=== PATIENT | male | born 1975 | race Caucasian/White ===

== ENCOUNTER 2016-12-25 20:03 | Emergency (ER) | payer BC ==
[~2016-12-25] VITALS: Ht 190.5 cm; Wt 165.9 kg
[~2016-12-25 20:03] MED LIST: MOTRIN800 MG PO; PROMETHAZINE HC25 M1 PO; VICODIN,LORT1 TABLET PO
[2016-12-25 21:42] LABS: HEMATOCRIT 40.9 % (38.0-50.0); MCH 31.6 PG (29.0-34.0); MEAN PLAT.VOLUME 10.3 uM^3 (9.0-12.4); PLATELET COUNT 228 K/uL (156-360); RBC DIS.WIDTH-CV 12.8 % (11.8-14.6); RBC DIS.WIDTH-SD 43.8 % (39-53); WHITE BLOOD COUNT 6.6 K/uL (4.1-10.2)
[2016-12-25 22:00] LABS: CHLORIDE 109 mEq/L (99-109); POTASSIUM 4.2 mEq/L (3.7-5.4); SODIUM 139 mEq/L (136-147)
[2016-12-25 22:02] LABS: GLUCOSE 138 mg/dL (70-99)
[2016-12-25 22:03] LABS: ANION GAP 8 MEQ/L (2-14)
[2016-12-25 22:04] LABS: TOTAL BILIRUBIN 0.4 mg/dL (0.0-1.0)
[2016-12-25 22:06] LABS: ALKALINE PHOSPHATASE 91 IU/L (3-129); GFR ESTIMATE (CALCULATED) > 59 mL/min/
[2016-12-25 22:07] LABS: UREA NITROGEN (BUN) 15 mg/dL (9-23)
[2016-12-25 22:09] LABS: LIPASE 35 U/L (1.0-51.0)
[2016-12-26] MEDS ORDERED: ZOFRAN ODT4 MG PO (01:48)
[2016-12-26 02:01] VITALS: BP 131/76
== END 2016-12-26 02:01 | disposition home or self-care (01) ==
LOC: EME 20:03
DX: R10.30 Lower abdominal pain, unspecified (principal); K42.9 Umbilical hernia without obstruction or gangrene; R05 Cough; R74.8 Abnormal levels of other serum enzymes; I10 Essential (primary) hypertension
CPT/HCPCS: 71020; 74177; 80053; 83690; 85027; 99281; 99284; J1885; J2405; J7030

== ENCOUNTER → 2017-01-07 | Outpatient (CLI) | payer BC ==
[~2017-01-07] MED LIST changes: +HYDROCHLOROTHIA25 MG PO; +ZOFRAN ODT4 MG PO
== END | disposition home or self-care (01) ==
LOC: CDC 15:43
DX: K43.9 Ventral hernia without obstruction or gangrene (principal); R94.31 Abnormal electrocardiogram [ECG] [EKG]
CPT/HCPCS: 93000

== ENCOUNTER 2017-01-13 05:17 | Day surgery (SDC) | payer BC ==
[~2017-01-13] VITALS: Ht 188 cm; Wt 163.5 kg
[2017-01-13 05:41] VITALS: BP 144/90
[2017-01-13] MEDS ORDERED: ZOHYDRO ER10 M1 PO (08:51)
[2017-01-13 10:55] VITALS: BP 144/83
[2017-01-13 11:46] VITALS: BP 123/79
[2017-01-13 13:00] VITALS: BP 127/79
[2017-01-13 14:38] VITALS: BP 132/70
== END 2017-01-13 14:50 | disposition home or self-care (01) ==
LOC: SDC 05:17
PROC: 0WUF4JZ Supplement Abdominal Wall with Synthetic Substitute, Percutaneous Endoscopic Approach (ICD-10-PCS; principal; 2017-01-13)
DX: K43.6 Other and unspecified ventral hernia with obstruction, without gangrene (principal); H57.9 Unspecified disorder of eye and adnexa; I10 Essential (primary) hypertension; Z82.49 Family history of ischemic heart disease and other diseases of the circulatory system; Z83.3 Family history of diabetes mellitus
CPT/HCPCS: 88302; C1781; J0131; J0690; J1100; J1170; J2250; J2405; J2710; J3010

== ENCOUNTER → 2017-09-15 | Outpatient (CLI) | payer BC ==
[~2017-09-15] MED LIST changes: +ULTRAM50 MG PO; +ZOHYDRO ER10 M1 PO
== END | disposition home or self-care (01) ==
LOC: CDC 11:39
DX: Z01.810 Encounter for preprocedural cardiovascular examination (principal); S92.352G Displaced fracture of fifth metatarsal bone, left foot, subsequent encounter for fracture with delayed healing; R94.31 Abnormal electrocardiogram [ECG] [EKG]
CPT/HCPCS: 93000

== ENCOUNTER 2017-10-07 13:01 | Day surgery (SDC) | payer BC ==
[~2017-10-07] VITALS: Ht 190.5 cm; Wt 161.9 kg
[~2017-10-07 13:01] MED LIST changes: +LISINOPRIL20 MG PO
[2017-10-07 13:22] VITALS: BP 132/82
[2017-10-07 19:45] VITALS: BP 127/70
[2017-10-07 20:30] VITALS: BP 131/71
== END 2017-10-07 20:50 | disposition home or self-care (01) ==
LOC: SDC 13:01
PROC: 0QSP04Z Reposition Left Metatarsal with Internal Fixation Device, Open Approach (ICD-10-PCS; principal; 2017-10-07)
DX: S92.352K Displaced fracture of fifth metatarsal bone, left foot, subsequent encounter for fracture with nonunion (principal); I10 Essential (primary) hypertension; E66.01 Morbid (severe) obesity due to excess calories; Z68.42 Body mass index [BMI] 45.0-49.9, adult
CPT/HCPCS: 73630; 76000; C1713; J0330; J0690; J1100; J2250; J2405; J2765; J2795; J3010